=== PATIENT | male | born 1970 | race Caucasian/White ===

== ENCOUNTER 2016-10-13 20:34 | Emergency (ER) | payer SELFPAY ==
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
[2016-10-13 20:52] LABS: BILIRUBIN URINE NEGATIVE (NEGATIVE); BLOOD URINE 250 /UL (NEGATIVE); COLOR URINE YELLOW (YELLOW); GLUCOSE URINE NEGATIVE (NEGATIVE); KETONE URINE 5 mg/dL (NEGATIVE); LEUKOCYTES URINE 25 /UL (NEGATIVE); NITRITE URINE NEGATIVE (NEGATIVE); PROTEIN URINE 100 mg/dL (NEGATIVE); SPEC GRAVITY URINE 1.015 (1.003-1.035); TURBIDITY URINE 2+ (CLEAR); UROBILINOGEN URINE 4 mg/dL (NORMAL)
[2016-10-13 20:52] LABS: BASOPHIL % 0.2 %; EOSINOPHIL # 0.1 K/uL (0.0-0.5); EOSINOPHIL % 0.5 %; HEMATOCRIT 30.4 % (37.0-53.0); HEMOGLOBIN 10.3 g/dL (12.0-17.0); IMMATURE GRANULOCYTE # 0.1 K/uL (0.0-0.3); IMMATURE GRANULOCYTE % 0.4 %; LYMPHOCYTE % 8.8 %; MCHC 33.9 gm/dL (32.0-36.5); MCV 94.4 fl (83.0-98.0); MONOCYTE # 0.6 K/uL (0.0-1.0); MONOCYTE % 5.5 %; MPV 9.3 fl (9.4-12.4); NEUTROPHIL # (ANC) 9.5 K/uL (1.4-9.0); NEUTROPHIL % 84.6 %; NRBC % 0 /100WBC (0-0.00); PLATELET COUNT 154 K/uL (150-450); RBC 3.22 M/uL (4.00-6.00); RDW-CV 12.4 % (11.9-14.6); WBC 11.3 K/uL (4.0-11.0)
[2016-10-13 20:58] LABS: INR - (THERAPEUTIC) 1.2 (0.9-1.1); PROTIME 12.4 SECONDS (9.6-11.1); PTT 26 SECONDS (25-32)
[2016-10-13 21:06] LABS: BICARBONATE 21.7 mmol/L (18.0-23.0); PCO2 51 mmHg (35-45); PO2 33 mmHg (80-90)
[2016-10-13 21:07] LABS: POTASSIUM 3.7 mEq/L (3.7-5.1); SODIUM 145 mEq/L (135-145)
[2016-10-13 21:10] LABS: BACTERIA URINE FEW (NEGATIVE); EPITHELIAL URINE NEGATIVE #/HPF (NEGATIVE); RBC URINE 20-50 #/HPF (NEGATIVE); RENAL EPITH URINE NEGATIVE #/HPF (NEGATIVE)
[2016-10-13 21:14] LABS: BARBITURATE NEGATIVE (NEGATIVE); COCAINE NEGATIVE (NEGATIVE); OPIATES NEGATIVE (NEGATIVE)
[2016-10-13 21:17] LABS: AMPHETAMINE NEGATIVE (NEGATIVE)
[2016-10-13 21:19] LABS: ANION GAP 9.7 (10.0-19.0); BLOOD UREA NITROGEN 12 mg/dL (6-24); CHLORIDE 116 mMol/L (96-110); ESTIMATED GFR (MDRD EQUATION) > 60
[2016-10-13 22:29] LABS: BASOPHIL % 0.1 %; EOSINOPHIL % 0.2 %; HEMATOCRIT 34.4 % (37.0-53.0); HEMOGLOBIN 11.5 g/dL (12.0-17.0); IMMATURE GRANULOCYTE # 0.1 K/uL (0.0-0.3); IMMATURE GRANULOCYTE % 0.5 %; LYMPHOCYTE # 0.7 K/uL (0.8-4.0); LYMPHOCYTE % 7.3 %; MCH 31.2 pg (27.0-34.0); MCHC 33.4 gm/dL (32.0-36.5); MCV 93.2 fl (83.0-98.0); MONOCYTE # 0.7 K/uL (0.0-1.0); MONOCYTE % 7.2 %; MPV 9.5 fl (9.4-12.4); NEUTROPHIL # (ANC) 8.4 K/uL (1.4-9.0); NEUTROPHIL % 84.7 %; NRBC % 0 /100WBC (0-0.00); RBC 3.69 M/uL (4.00-6.00); RDW-CV 13.3 % (11.9-14.6); WBC 9.9 K/uL (4.0-11.0)
[2016-10-13 22:30] LABS: PLATELET COUNT 106 K/uL (150-450)
[2016-10-13 22:46] LABS: ALBUMIN 2.4 gm/dL (3.5-5.0); ALK PHOS 49 IU/L (33-138); ALT 25 IU/L (12-78); AST 40 IU/L (10-40); BLOOD UREA NITROGEN 12 mg/dL (6-24); CALCIUM 8.2 mg/dL (8.5-10.5); CHLORIDE 114 mMol/L (96-110); CO2 24 mMol/L (22-32); CREATININE 0.7 mg/dL (0.6-1.3); ESTIMATED GFR (MDRD EQUATION) > 60; POTASSIUM 4.2 mMol/L (3.7-5.1); TOTAL BILIRUBIN 0.5 mg/dL (0.0-1.5)
[2016-10-13 22:52] LABS: ANION GAP 13.2 (10.0-19.0); SODIUM 147 mMol/L (135-145); TOTAL PROTEIN 4.7 g/dL (6.0-8.4)
== END 2016-10-14 00:53 | disposition disaster alternative care site (69) ==
LOC: GACC 20:34 → GICU 22:17 → GACC 22:17
PROVIDERS: Emergency Medicine; Surgery
PROC: 0W9B30Z Drainage of Left Pleural Cavity with Drainage Device, Percutaneous Approach (ICD-10-PCS; principal; 2016-10-13)
PROC: 0W9930Z Drainage of Right Pleural Cavity with Drainage Device, Percutaneous Approach (ICD-10-PCS; 2016-10-13)
PROC: 30233L1 Transfusion of Nonautologous Fresh Plasma into Peripheral Vein, Percutaneous Approach (ICD-10-PCS; 2016-10-13)
PROC: 30233N1 Transfusion of Nonautologous Red Blood Cells into Peripheral Vein, Percutaneous Approach (ICD-10-PCS; 2016-10-13)
PROC: 30233K1 Transfusion of Nonautologous Frozen Plasma into Peripheral Vein, Percutaneous Approach (ICD-10-PCS; 2016-10-13)
DX: S92.102B Unspecified fracture of left talus, initial encounter for open fracture (principal); S92.002B Unspecified fracture of left calcaneus, initial encounter for open fracture; S82.51XA Displaced fracture of medial malleolus of right tibia, initial encounter for closed fracture; V89.2XXA Person injured in unspecified motor-vehicle accident, traffic, initial encounter; Y92.410 Unspecified street and highway as the place of occurrence of the external cause
CPT/HCPCS: C1751; G0390; G0480; J0330; J0690; J1170; J2250; J3010; J7030; J7040; J7060; P9016; P9017; Q9967